=== PATIENT | male | born 1960 | race Two or more races ===

== ENCOUNTER 2018-08-24 14:15 | Inpatient (IN) | payer SELFPAY ==
[~2018-08-24] VITALS: Ht 165.1 cm; Wt 136.1 kg
[~2018-08-24 14:15] MED LIST: AMLO10TA6 PO; METO100T7 PO
[2018-08-24] MEDS ORDERED: MORPHINE SULFATE 2 MG/ML VIAL. IV ONE (14:45)
[2018-08-24] MEDS: NITROGLYCERIN SUBLINGUAL 0.4 MG BOTTLE OF 25. SL PRN ×3 (14:55→15:10)
[2018-08-24 14:57] LABS: BASO # 0.1 x10^3/uL (0.0-0.2); BASO % 1 % (0-3); EOS # 0.1 x10^3/uL (0.0-0.7); EOS % 1 % (0-3); HEMATOCRIT 37.1 % (39.0-53.0); HEMOGLOBIN 12.9 g/dL (13.0-17.5); LYMPH # 1.3 x10^3/uL (1.0-4.8); LYMPH % 19 % (24-48); MEAN CORPUSCULAR HEMOGLOBIN 32 pg (25-35); MEAN CORPUSCULAR HGB CONC 35 g/dL (31-37); MEAN CORPUSCULAR VOLUME 91 fL (79-100); MONO # 0.5 x10^3/uL (0.0-1.1); MONO % 7 % (0-9); NEUT # 4.6 x10^3uL (1.8-7.7); NEUT % 71 % (31-73); PLATELET COUNT 89 x10^3/uL (140-400); RED BLOOD COUNT 4.09 x10^6/uL (4.30-5.70); RED CELL DISTRIBUTION WIDTH 14.4 % (11.5-14.5); WHITE BLOOD COUNT 6.5 x10^3/uL (4.0-11.0)
[2018-08-24 15:04] LABS: PROTHROMBIN TIME PATIENT 17.5 SEC (11.7-14.0)
[2018-08-24 15:07] LABS: CALCIUM 8.6 mg/dL (8.5-10.1); CREATININE 0.9 mg/dL (0.7-1.3); D-DIMER 1.77 ug/mlFEU (0.00-0.50); GFR 86.7; POTASSIUM 3.4 mmol/L (3.5-5.1)
[2018-08-24 15:13] LABS: ALBUMIN 3.4 g/dL (3.4-5.0); ALBUMIN/GLOBULIN RATIO 0.6 (1.0-1.7); MAGNESIUM 1.4 mg/dL (1.8-2.4); TOTAL BILIRUBIN 2.2 mg/dL (0.2-1.0); TOTAL PROTEIN 8.8 g/dL (6.4-8.2)
--- NOTE | 2018-08-24 15:18 | PHYS DOC ---
Past Medical History Past Medical History: Hypertension Past Surgical History: No Surgical History Alcohol Use: None Drug Use: None Adult General Chief Complaint Chief Complaint: CHEST PAIN HPI HPI Patient is a 57 year old male with history of hypertension who presents today complaining of 8 out of 10 stabbing substernal chest pain radiating to his back that has been going on since yesterday. Patient states the pain is worse when he is ambulating. Patient states he has taken aspirin for this pain with no relief. Patient states he had similar pain last year and was evaluated, he states he was requested to see a tennis professional, he states his pain went away and never followed up with her tennis professional. Review of Systems Review of Systems Constitutional: Denies fever or chills [] Eyes: Denies change in visual acuity, redness, or eye pain [] HENT: Denies nasal congestion or sore throat [] Respiratory: Denies cough or shortness of breath [] Cardiovascular: Reports chest pain GI: Denies abdominal pain, nausea, vomiting, bloody stools or diarrhea [] : Denies dysuria or hematuria [] Musculoskeletal: Denies back pain or joint pain [] Integument: Denies rash or skin lesions [] Neurologic: Denies headache, focal weakness or sensory changes [] All other systems were reviewed and found to be within normal limits, except as documented in this note. Current Medications Current Medications Current Medications Medications (Trade) Dose Ordered Sig/Zane Start Time Stop Time Status Last Admin Dose Admin Info (CONTRAST GIVEN -- Rx MONITORING) 1 each PRN DAILY PRN 08/24/18 15:45 08/26/18 15:44 Iohexol (Omnipaque 300 Mg/ml) 90 ml 1X ONCE 08/24/18 15:30 08/24/18 15:33 DC 08/24/18 15:30 100 ML Magnesium Sulfate 50 ml @ 25 mls/hr 1X ONCE 08/24/18 16:15 08/24/18 18:14 08/24/18 16:40 25 MLS/HR Morphine Sulfate (Morphine Sulfate) 2 mg 1X ONCE 08/24/18 14:45 08/24/18 14:46 DC 08/24/18 14:55 2 MG Nitroglycerin (Nitrostat) 0.4 mg PRN Q5MIN PRN 08/24/18 14:45 08/25/18 14:44 08/24/18 15:10 0.4 MG Potassium Chloride (Klor-Con) 20 meq 1X ONCE 08/24/18 16:15 08/24/18 16:16 DC 08/24/18 16:39 20 MEQ Allergies Allergies Allergies Coded Allergies Type Severity Reaction Last Updated Verified No Known Drug Allergies 08/28/17 No Physical Exam Physical Exam Constitutional: Obese patient, no acute distress, non-toxic appearance. [] HENT: Normocephalic, atraumatic, bilateral external ears normal, oropharynx moist, no oral exudates, nose normal. [] Eyes: PERRLA, EOMI, conjunctiva normal, no discharge. [] Neck: Normal range of motion, no tenderness, supple, no stridor. [] Cardiovascular:Heart rate regular rhythm, no murmur [] Lungs & Thorax: Bilateral breath sounds clear to auscultation [] Abdomen: Bowel sounds normal, soft, no tenderness, no masses, no pulsatile masses. [] Skin: Warm, dry, no erythema, no rash. [] Back: No tenderness, no CVA tenderness. [] Extremities: No tenderness, no cyanosis, no clubbing, ROM intact, no edema. [] Neurologic: Alert and oriented X 3, normal motor function, normal sensory function, no focal deficits noted. [] Psychologic: Affect normal, judgement normal, mood normal. [] Current Patient Data Vital Signs Vital Signs Date Time Temp Pulse Resp B/P (MAP) Pulse Ox O2 Delivery O2 Flow Rate FiO2 08/24/18 16:43 98 18 140/76 (97) 96 Room Air 08/24/18 14:44 98.2 98.2 Lab Values Laboratory Tests Test 08/24/18 14:30 White Blood Count 6.5 x10^3/uL (4.0-11.0) Red Blood Count 4.09 x10^6/uL (4.30-5.70) L Hemoglobin 12.9 g/dL (13.0-17.5) L Hematocrit 37.1 % (39.0-53.0) L Mean Corpuscular Volume 91 fL (79-100) Mean Corpuscular Hemoglobin 32 pg (25-35) Mean Corpuscular Hemoglobin Concent 35 g/dL (31-37) Red Cell Distribution Width 14.4 % (11.5-14.5) Platelet Count 89 x10^3/uL (140-400) L Neutrophils (%) (Auto) 71 % (31-73) Lymphocytes (%) (Auto) 19 % (24-48) L Monocytes (%) (Auto) 7 % (0-9) Eosinophils (%) (Auto) 1 % (0-3) Basophils (%) (Auto) 1 % (0-3) Neutrophils # (Auto) 4.6 x10^3uL (1.8-7.7) Lymphocytes # (Auto) 1.3 x10^3/uL (1.0-4.8) Monocytes # (Auto) 0.5 x10^3/uL (0.0-1.1) Eosinophils # (Auto) 0.1 x10^3/uL (0.0-0.7) Basophils # (Auto) 0.1 x10^3/uL (0.0-0.2) Platelet Estimate Decreased (ADEQUATE) Prothrombin Time 17.5 SEC (11.7-14.0) H Prothrombin Time INR 1.5 (0.8-1.1) H D-Dimer (Arcelia) 1.77 ug/mlFEU (0.00-0.50) H Sodium Level 138 mmol/L (136-145) Potassium Level 3.4 mmol/L (3.5-5.1) L Chloride Level 99 mmol/L (98-107) Carbon Dioxide Level 23 mmol/L (21-32) Anion Gap 16 (6-14) H Blood Urea Nitrogen 9 mg/dL (8-26) Creatinine 0.9 mg/dL (0.7-1.3) Estimated GFR (Cockcroft-Gault) 86.7 BUN/Creatinine Ratio 10 (6-20) Glucose Level 83 mg/dL (70-99) Calcium Level 8.6 mg/dL (8.5-10.1) Magnesium Level 1.4 mg/dL (1.8-2.4) L Total Bilirubin 2.2 mg/dL (0.2-1.0) H Aspartate Amino Transferase (AST) 165 U/L (15-37) H Alanine Aminotransferase (ALT) 86 U/L (16-63) H Alkaline Phosphatase 139 U/L (46-116) H Troponin I Quantitative 0.018 ng/mL (0.000-0.055) US-Igc-I-Type Natriuretic Peptide 32 pg/mL (0-124) Total Protein 8.8 g/dL (6.4-8.2) H Albumin 3.4 g/dL (3.4-5.0) Albumin/Globulin Ratio 0.6 (1.0-1.7) L Triglycerides Level 126 mg/dL (0-150) Cholesterol Level 181 mg/dL (0-200) LDL Cholesterol, Calculated 88 mg/dL (0-100) VLDL Cholesterol, Calculated 25 mg/dL (0-40) Non-HDL Cholesterol Calculated 113 mg/dL (0-129) HDL Cholesterol 68 mg/dL (40-60) H Cholesterol/HDL Ratio 2.7 Lipase 274 U/L (73-393) Thyroid Stimulating Hormone (TSH) 1.421 uIU/mL (0.358-3.74) Ethyl Alcohol Level < 10 mg/dL (0-10) Laboratory Tests 08/24/18 14:30 Laboratory Tests 08/24/18 14:30 EKG EKG 14:[address] Haddad sinus tachycardia with non specific ST changes.[] Radiology/Procedures Radiology/Procedures []PROCEDURE: CT ANGIO CHEST ABD PELVIS PQRS Compliance statement: One or more of the following individualized dose reduction techniques were utilized for this examination: 1. Automated exposure control. 2. Adjustment of the mA and/or kV according to patient size. 3. Use of iterative reconstruction technique. Indication:Left-sided chest pain, nausea. Evaluate for PE versus aortic dissection. TECHNIQUE: CT angiogram of the chest, abdomen and pelvis without and with IV contrast with multiplanar MIP reformats. 3-D volume rendered postprocessing was performed. COMPARISON: None FINDINGS: Suboptimal PE study due to contrast bolus timing and motion artifact. No central or proximal segmental filling defects. Evaluation of distal segmental and subsegmental pulmonary arteries is limited. Suboptimal angiography study for evaluation of aortic dissection. No aortic aneurysm seen. No apparent dissection flap seen. Heart is normal in size. No pericardial or pleural effusion. No enlarged axillary, mediastinal or hilar adenopathy. Central airways are patent. Lungs are clear of focal consolidation or interstitial abnormalities. Evaluation of bilateral lower lobes is limited due to motion artifact. Diffuse hepatic steatosis. Gallstones noted. No pericholecystic fluid. Spleen is mildly enlarged measuring 14.5 cm without focal lesion Pancreas within normal limits without peripancreatic inflammatory changes or focal pancreatic lesion. Adrenal glands show no focal mass. Recanalization of paraumbilical vein is seen. Partially exophytic 1.7 cm low attenuating lesion is seen in the upper pole of the right kidney demonstrating Hounsfield units compatible with simple cyst. Simple cyst is seen in the left kidney measuring 4.0 x 3.6 cm. No nephrolithiasis or hydronephrosis. No enlarged retroperitoneal adenopathy. Mildly enlarged 1.8 x 1.1 cm right external iliac chain lymph node is seen. Mildly enlarged 1.7 x 0.8 cm left external iliac chain lymph node is seen. Small fat-containing bilateral inguinal hernia. No free pelvic fluid or ascites. The celiac axis, splenic artery, common hepatic artery, left gastric artery, SMA, YAJAIRA, bilateral renal arteries, bilateral common iliac arteries, bilateral external/internal iliac arteries, bilateral common femoral arteries are patent without evidence of atherosclerotic disease or aneurysm. No bowel obstruction. Normal appendix. Shotty craig hepatis lymph nodes are seen most likely reactive. Urinary bladder is within normal limits. The prostate and seminal vesicles show no large mass. No suspicious bony lesion. IMPRESSION: 1. Suboptimal PE study due to contrast bolus timing and breathing motion artifact. No central or proximal segmental PE. Evaluation of distal segmental and subsegmental pulmonary arteries is limited. No imaging evidence of pulmonary infarct or pneumonia. Further evaluation with nuclear medicine VQ scan may be of additional benefit. 2. Suboptimal aortic angiographic study. However no aortic aneurysm or apparent dissection flap seen. The major abdominal aortic branches are patent. 3. Hepatic steatosis. 4. Mild splenomegaly with evidence of pulmonary artery hypertension. 5. Mildly enlarged bilateral external iliac chain lymph nodes, nonspecific most likely reactive. 6. Cholelithiasis without imaging evidence of acute cholecystitis. Electronically signed by: Cam Crisostomo DO (08/24/2018 4:37 PM) [facility] DICTATED and SIGNED BY: CAM CRISOSTOMO DO DATE: 08/24/18 162 PROCEDURE: ABDOMEN LTD Right upper quadrant abdominal ultrasound, 08/24/2018: HISTORY: Elevated bilirubin, right upper quadrant pain The gallbladder is within normal limits in size. There are multiple foci of increased activity echogenicity in the dependent aspect of the gallbladder compatible with calculi. The gallbladder wall are not thickened. The common hepatic duct is not visualized. The pancreas and central retroperitoneum were obscured by overlying bowel. The liver was not well delineated due to the patient's body habitus. No right renal abnormality is detected. IMPRESSION: Limited exam demonstrating cholelithiasis. Electronically signed by: Chin Benitez MD (08/24/2018 4:42 PM) [facility] DICTATED and SIGNED BY: CHIN BENITEZ MD DATE: 08/24/18 3720 Course & Med Decision Making Course & Med Decision Making Pertinent Labs and Imaging studies reviewed. (See chart for details) This is a 57-year-old male patient presenting to the ED today complaining of chest pain since yesterday. Spoke with Malena PROFESSOR OF ENVIRONMENTAL SCIENCE for cardiology who will follow-up with the patient. 16:[address] PROFESSOR OF ENVIRONMENTAL SCIENCE for Cardiology in the Ed seeing patient. States patient has hx of alcoholism and Meth use. He last drank yesterday and that's when his symptoms began by information he gave Lane CBC with hemoglobin of 12.9 and hematocrit 37.2, patient denies any rectal bleeding, troponin is normal, magnesium 1.4, patient was given IV magnesium in the ED. Bilirubin 2.2 AST 105 ALT 86 ALT 139, limited abdominal ultrasound was done which was noted for cholelithiasis. Chest x-ray interpreted by radiologist as negative for any acute findings, d- dimer was 1.77, CTA chest abdomen was done which did not identify any PE or dissection though radiologist mentions this was a suboptimal diagnosis due to the time contrast was injected. Patient's pain is currently well controlled. He was given morphine and nitroglycerin in the ED. He already had an aspirin. Consulted with Dr. Velazquez who accepted patient for admission. Dragon Disclaimer Dragon Disclaimer This electronic medical record was generated, in whole or in part, using a voice recognition dictation system. Departure Departure Impression: Primary Impression: Chest pain Additional Impressions: Cholelithiases Transaminitis Disposition: ADMITTED INPATIENT Condition: STABLE Referrals: UNKNOWN PCP NAME (PCP) Problem Qualifiers Primary Impression: Chest pain Chest pain type: unspecified Qualified Codes: R07.9 - Chest pain, unspecified Additional Impressions: Cholelithiases Cholelithiasis location: gallbladder Cholecystitis presence: without cholecystitis Biliary obstruction: without biliary obstruction Qualified Codes: K80.20 - Calculus of gallbladder without cholecystitis without obstruction TARA PRICE BANANA GRADER Aug 24, 2018 15:17
[2018-08-24 15:20] LABS: PLT ESTIMATE DECREASED (ADEQUATE)
--- NOTE | 2018-08-24 15:22 | RAD ---
PORTABLE CHEST 1V Clinical indications: CHEST PAIN COMPARISON: None available. Findings: There is mild elevation of the right hemidiaphragm. This could be due to focal eventration. No acute lung infiltrate or pleural effusion or pulmonary edema or lung mass or pneumothorax is seen. The heart size, pulmonary vasculature, mediastinum and both vesta are unremarkable. Impression: No acute radiographic abnormality is seen. Electronically signed by: Cy Liriano MD (08/24/2018 3:19 PM) [place] [id number]
[2018-08-24] MEDS ORDERED: IOHEXOL 300 MG/ML 100ML VIAL. IV ONE (15:30)
--- NOTE | 2018-08-24 15:42 | EKG ---
[facility] [address] [place] [address] Test Date: 2018-08-24 Test Time: 14:27:06 Pat Name: JOHN JONESSOLE Department: Room: Gender: M Mountain Guide: : 1960 Requested By: TARA PRICE Order Number: [id number] Reading MD: Measurements Intervals [place] Rate: 108 P: 8 DC: 150 QRS: 61 QRSD: 100 T: 57 QT: 372 QTc: 502 Interpretive Statements SINUS TACHYCARDIA OTHERWISE NORMAL ECG No previous ECG available for comparison
[2018-08-24] MEDS ORDERED: CONTRAST GIVEN. MC PRN (15:45)
--- NOTE | 2018-08-24 16:04 | PDOC2 ---
JOSE PADILLA VP INFORMATICS 08/24/18 1604: CARDIAC CONSULT DATE OF CONSULT Date of Consult DATE: 08/24/18 TIME: 15:55 REASON FOR CONSULT Reason for Consult: Chest pain REFERRING PHYSICIAN Referring Physician: María SOURCE Source: Chart review, Patient HISTORY OF PRESENT ILLNESS HISTORY OF PRESENT ILLNESS This is a pleasant 57 yo male admitted for complains of chest pain. He was a heavy alcoholic from last year and quit and started drinking again on for a alliance party and quit and yesterday drank 1 bottle of tequila during a alliance party. His lower sternal chest pressure which radiated directly to his immediate back and lower back after drinking the ETOH yesterday, This got a little better and finally today this recurred again and also could not take deep breath due to the pain and also having palpable epigastric and RUQ pain. Positive for nausea but no diarrhea. The last time he ate food was yesterday. No palpitations nor significant diaphoresis. He did fall because he was drank back in [employer]. No prior CAD or VTE. He takes metoprolol 100 mg bid, lisinopril 20 mg/HCTZ 12.5 and amlodipine 10 mg daily. He took some ASA during his chest pain today and the pain lasted about 30 minutes. Denies any HARMON. PAST MEDICAL HISTORY Cardiovascular: HTN Pulmonary: No pertinent hx CENTRAL NERVOUS SYSTEM: Other (No pertientn history) GI: Hemorrhoids Heme/Onc: No pertinent hx Hepatobiliary: No pertinent hx Psych: Other (past heavy alcoholism) Musculoskeletal: Osteoarthritis Rheumatologic: No pertinent hx Infectious disease: No pertinent hx ENT: No pertinent hx Renal/: No pertinent hx Endocrine: No pertinent hx Dermatology: No pertinent hx PAST SURGICAL HISTORY Past Surgical History: No pertinent history FAMILY HISTORY Family History noncontributory to CV SOCIAL HISTORY Smoke: No ALCOHOL: heavy Drugs: None, Crystal meth (2017 last use) Lives: with Family CURRENT MEDICATIONS CURRENT MEDICATIONS Current Medications Medications (Trade) Dose Ordered Sig/Zane Route PRN Reason Start Time Stop Time Status Last Admin Dose Admin Nitroglycerin (Nitrostat) 0.4 mg PRN Q5MIN PRN SL CP RATING > 1/10 08/24/18 14:45 08/25/18 14:44 08/24/18 15:10 Morphine Sulfate (Morphine Sulfate) 2 mg 1X ONCE IV 08/24/18 14:45 08/24/18 14:46 DC 08/24/18 14:55 ALLERGIES ALLERGIES: Coded Allergies: No Known Drug Allergies (Unverified , 08/28/17) ROS Review of System 14 point ROS evaluated with pertinent positives noted per HPI PHYSICAL EXAM General: Alert, Oriented X3, Cooperative, No acute distress HEENT: Atraumatic, Mucous membr. moist/pink Lungs: Clear to auscultation, Normal air movement Heart: Regular rate (SR/ST), Normal S1, Normal S2, Other (distnat heart sounds) Extremities: No cyanosis, Other (trace to 1+ bilateral LE pitting edema) Skin: No breakdown Neuro: Normal speech, Sensation intact Psych/Mental Status: Mental status NL, Mood NL MUSCULOSKELETAL: Osteoarthritic changes both hands VITALS VITALS Vital Signs Date Time Temp Pulse Resp B/P (MAP) Pulse Ox O2 Delivery O2 Flow Rate FiO2 08/24/18 15:10 104 111/56 08/24/18 14:55 20 98 08/24/18 14:44 98.2 Room Air 98.2 LABS Lab: Laboratory Tests Test 08/24/18 14:30 White Blood Count 6.5 x10^3/uL (4.0-11.0) Red Blood Count 4.09 x10^6/uL (4.30-5.70) Hemoglobin 12.9 g/dL (13.0-17.5) Hematocrit 37.1 % (39.0-53.0) Mean Corpuscular Volume 91 fL (79-100) Mean Corpuscular Hemoglobin 32 pg (25-35) Mean Corpuscular Hemoglobin Concent 35 g/dL (31-37) Red Cell Distribution Width 14.4 % (11.5-14.5) Platelet Count 89 x10^3/uL (140-400) Neutrophils (%) (Auto) 71 % (31-73) Lymphocytes (%) (Auto) 19 % (24-48) Monocytes (%) (Auto) 7 % (0-9) Eosinophils (%) (Auto) 1 % (0-3) Basophils (%) (Auto) 1 % (0-3) Neutrophils # (Auto) 4.6 x10^3uL (1.8-7.7) Lymphocytes # (Auto) 1.3 x10^3/uL (1.0-4.8) Monocytes # (Auto) 0.5 x10^3/uL (0.0-1.1) Eosinophils # (Auto) 0.1 x10^3/uL (0.0-0.7) Basophils # (Auto) 0.1 x10^3/uL (0.0-0.2) Platelet Estimate Decreased (ADEQUATE) Prothrombin Time 17.5 SEC (11.7-14.0) Prothromb Time International Ratio 1.5 (0.8-1.1) D-Dimer (Arcelia) 1.77 ug/mlFEU (0.00-0.50) Sodium Level 138 mmol/L (136-145) Potassium Level 3.4 mmol/L (3.5-5.1) Chloride Level 99 mmol/L (98-107) Carbon Dioxide Level 23 mmol/L (21-32) Anion Gap 16 (6-14) Blood Urea Nitrogen 9 mg/dL (8-26) Creatinine 0.9 mg/dL (0.7-1.3) Estimated GFR (Cockcroft-Gault) 86.7 BUN/Creatinine Ratio 10 (6-20) Glucose Level 83 mg/dL (70-99) Calcium Level 8.6 mg/dL (8.5-10.1) Magnesium Level 1.4 mg/dL (1.8-2.4) Total Bilirubin 2.2 mg/dL (0.2-1.0) Aspartate Amino Transf (AST/SGOT) 165 U/L (15-37) Alanine Aminotransferase (ALT/SGPT) 86 U/L (16-63) Alkaline Phosphatase 139 U/L (46-116) Troponin I Quantitative 0.018 ng/mL (0.000-0.055) GD-Bxb-Z-Type Natriuretic Peptide 32 pg/mL (0-124) Total Protein 8.8 g/dL (6.4-8.2) Albumin 3.4 g/dL (3.4-5.0) Albumin/Globulin Ratio 0.6 (1.0-1.7) Lipase 274 U/L (73-393) Thyroid Stimulating Hormone (TSH) 1.421 uIU/mL (0.358-3.74) ASSESSMENT/PLAN ASSESSMENT/PLAN 1. Chest pain: mixed features. Suspect GI/GB. Possible cholelithiasis/ esophagitis 2. Elevated DDIMER: CTA chest/abd/pelvis pending 3. Binge alcoholism with hx of heavy alcoholism: relapse 1 bottle of tequila yesterday 4. Hypomagnesemia/hypokalemia 5. Coagulopathy with telangiectasia: INR 1,5. likely ETOH related. per PCP 6. Morbid obesity Recommendations 1. TTE. trend troponin. Await CT results. UDS 2. Resume home BP regimen once in EMR. 3. ETOH withdrawal protocol per PCP. Discussed avoidance of binging. 4. Replace K and Mg. WON ROGERS MD 08/25/18 1139: CARDIAC CONSULT ASSESSMENT/PLAN ASSESSMENT/PLAN Patient seen and examined 08/24/18 (late entry). Agree with NAVAL ENGINEER's assessment and plan. Chest pain with atypical features and most probably GI etiology. Myocardial infarction been ruled out. Check 2-D echo to assess LV function and rule out wall motion abnormalities Monitor for alcohol withdrawal Agree with replacing potassium and magnesium levels Thank you for your consultation JOSE PADILLA APRN Aug 24, 2018 16:04 WON ROGERS MD Aug 25, 2018 11:39
[2018-08-24] MEDS ORDERED: MAGNESIUM SULFATE 2GM 50 ML IV ONE (16:15)
[2018-08-24] MEDS ORDERED: POTASSIUM CHLORIDE 20 MEQ TABLET.ER. PO ONE (16:15)
--- NOTE | 2018-08-24 16:41 | RAD ---
PQRS Compliance statement: One or more of the following individualized dose reduction techniques were utilized for this examination: 1. Automated exposure control. 2. Adjustment of the mA and/or kV according to patient size. 3. Use of iterative reconstruction technique. Indication:Left-sided chest pain, nausea. Evaluate for PE versus aortic dissection. TECHNIQUE: CT angiogram of the chest, abdomen and pelvis without and with IV contrast with multiplanar MIP reformats. 3-D volume rendered postprocessing was performed. COMPARISON: None FINDINGS: Suboptimal PE study due to contrast bolus timing and motion artifact. No central or proximal segmental filling defects. Evaluation of distal segmental and subsegmental pulmonary arteries is limited. Suboptimal angiography study for evaluation of aortic dissection. No aortic aneurysm seen. No apparent dissection flap seen. Heart is normal in size. No pericardial or pleural effusion. No enlarged axillary, mediastinal or hilar adenopathy. Central airways are patent. Lungs are clear of focal consolidation or interstitial abnormalities. Evaluation of bilateral lower lobes is limited due to motion artifact. Diffuse hepatic steatosis. Gallstones noted. No pericholecystic fluid. Spleen is mildly enlarged measuring 14.5 cm without focal lesion Pancreas within normal limits without peripancreatic inflammatory changes or focal pancreatic lesion. Adrenal glands show no focal mass. Recanalization of paraumbilical vein is seen. Partially exophytic 1.7 cm low attenuating lesion is seen in the upper pole of the right kidney demonstrating Hounsfield units compatible with simple cyst. Simple cyst is seen in the left kidney measuring 4.0 x 3.6 cm. No nephrolithiasis or hydronephrosis. No enlarged retroperitoneal adenopathy. Mildly enlarged 1.8 x 1.1 cm right external iliac chain lymph node is seen. Mildly enlarged 1.7 x 0.8 cm left external iliac chain lymph node is seen. Small fat-containing bilateral inguinal hernia. No free pelvic fluid or ascites. The celiac axis, splenic artery, common hepatic artery, left gastric artery, SMA, YAJAIRA, bilateral renal arteries, bilateral common iliac arteries, bilateral external/internal iliac arteries, bilateral common femoral arteries are patent without evidence of atherosclerotic disease or aneurysm. No bowel obstruction. Normal appendix. Shotty craig hepatis lymph nodes are seen most likely reactive. Urinary bladder is within normal limits. The prostate and seminal vesicles show no large mass. No suspicious bony lesion. IMPRESSION: 1. Suboptimal PE study due to contrast bolus timing and breathing motion artifact. No central or proximal segmental PE. Evaluation of distal segmental and subsegmental pulmonary arteries is limited. No imaging evidence of pulmonary infarct or pneumonia. Further evaluation with nuclear medicine VQ scan may be of additional benefit. 2. Suboptimal aortic angiographic study. However no aortic aneurysm or apparent dissection flap seen. The major abdominal aortic branches are patent. 3. Hepatic steatosis. 4. Mild splenomegaly with evidence of pulmonary artery hypertension. 5. Mildly enlarged bilateral external iliac chain lymph nodes, nonspecific most likely reactive. 6. Cholelithiasis without imaging evidence of acute cholecystitis. Electronically signed by: Cam Crisostomo DO (08/24/2018 4:37 PM) [facility]
--- NOTE | 2018-08-24 16:46 | RAD ---
Right upper quadrant abdominal ultrasound, 08/24/2018: HISTORY: Elevated bilirubin, right upper quadrant pain The gallbladder is within normal limits in size. There are multiple foci of increased activity echogenicity in the dependent aspect of the gallbladder compatible with calculi. The gallbladder wall are not thickened. The common hepatic duct is not visualized. The pancreas and central retroperitoneum were obscured by overlying bowel. The liver was not well delineated due to the patient's body habitus. No right renal abnormality is detected. IMPRESSION: Limited exam demonstrating cholelithiasis. Electronically signed by: Chin Benitez MD (08/24/2018 4:42 PM) [facility]
[2018-08-24 17:07] LABS: CHOLESTEROL/HDL RATIO 2.7
--- NOTE | 2018-08-24 17:48 | EKG ---
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
--- NOTE | 2018-08-24 18:02 | HP ---
ADMIT DATE: 08/24/2018 CHIEF COMPLAINT: Chest pain. HISTORY OF PRESENT ILLNESS: The patient is a pleasant 57-year-old male who presents with chest pain rated 7/10, worse with moving, better with sitting still, describes it as agonizing and pressure like. He took a nitro, it helped. I discussed the case with ER physician. We are going to admit the patient and consult Cardiology. PAST MEDICAL HISTORY: Osteoarthritis and alcohol issues. ALLERGIES: None. FAMILY HISTORY: Alcohol issues. SOCIAL HISTORY: He drinks heavily tequila. Does not smoke or take drugs. MEDICATIONS: Reviewed, please refer to the MRAD. REVIEW OF SYSTEMS: GENERAL: No history of weight change, weakness or fevers. SKIN: No bruising, hair changes or rashes. EYES: No blurred, double or loss of vision. NOSE AND THROAT: No history of nosebleeds, hoarseness or sore throat. HEART: He complains of chest pain. LUNGS: Denies cough, hemoptysis, wheezing or shortness of breath. GASTROINTESTINAL: Denies changes in appetite, nausea, vomiting, diarrhea or constipation. GENITOURINARY: No history of frequency, urgency, hesitancy or nocturia. NEUROLOGIC: Denies history of numbness, tingling, tremor or weakness. PSYCHIATRIC: No history of panic, anxiety or depression. ENDOCRINE: No history of heat or cold intolerance, polyuria or polydipsia. EXTREMITIES: Denies muscle weakness, joint pain, pain on walking or stiffness. PHYSICAL EXAMINATION: VITAL SIGNS: Temperature afebrile, pulse 98, respirations 18. GENERAL: He is alert, cooperative, complaining of chest pain. HEART: Normal S1, S2. LUNGS: Clear to auscultation. ABDOMEN: Soft, obese. EXTREMITIES: 1+ edema. SKIN: No rashes. ENDOCRINE: No thyromegaly. LYMPHATICS: No cervical nodes. HEMATOPOIETIC: No bruising. PSYCHIATRIC: He is depressed. NEUROLOGICAL: He is moving all extremities. GENITOURINARY: Normal. LABORATORY DATA: Hemoglobin is 12.9. Troponin 0.018. ASSESSMENT AND PLAN: Chest pain, rule out coronary artery disease. The patient has been admitted. We will check serial enzymes, serial EKGs. Consult Cardiology, cardiac monitoring. Daily aspirin, p.r.n. nitro. ELMERL Ole SYED DO DR: Jeff JOB#: [id number] / [id number]
[2018-08-24] MEDS ORDERED: LISI1TAB5 PO (20:11)
[2018-08-24 21:56] LABS: BILIRUBIN,URINE SMALL (NEG); CLARITY,URINE CLEAR; NITRITE,URINE NEGATIVE (NEG); PH,URINE 6.5; PROTEIN,URINE 30 mg/dL (NEG-TRACE)
[2018-08-24 22:01] LABS: COLOR,URINE DK YELLOW
[2018-08-24 22:02] LABS: BARBITURATES NEG (NEG); BENZODIAZEPINES NEG (NEG); CANNABINOIDS NEG (NEG); COCAINE NEG (NEG); METHADONE NEG (NEG); OPIATES POS (NEG); PHENCYCLIDINE NEG (NEG)
[2018-08-24 22:06] LABS: AMPHETAMINE/METHAMPHETAMINE NEG (NEG); BACTERIA,URINE 0 /HPF (0-FEW); RBC,URINE OCC /HPF (0-2); SQUAMOUS EPITHELIAL CELL,UR FEW /LPF; WBC,URINE 0 /HPF (0-4)
[2018-08-24 23:35] VITALS: BP 152/72
[2018-08-25 03:45] VITALS: BP 157/84
[2018-08-25 07:00] VITALS: BP 170/83
[2018-08-25 08:00] LABS: CALCIUM 8.4 mg/dL (8.5-10.1); CREATININE 0.7 mg/dL (0.7-1.3); GFR 115.8; MAGNESIUM 1.9 mg/dL (1.8-2.4); POTASSIUM 3.3 mmol/L (3.5-5.1)
[2018-08-25] MEDS ORDERED: POTASSIUM CHLORIDE 20 MEQ TABLET.ER. PO ONE (08:45)
[2018-08-25] MEDS ORDERED: hydroCHLOROthiazide 12.5 MG CAPSULE PO SCH (09:00)
[2018-08-25] MEDS: amLODIPine BESYLATE 10 MG TABLET PO SCH (10:04)
[2018-08-25] MEDS: LISINOPRIL 20 MG TABLET PO SCH (10:04)
[2018-08-25] MEDS: METOPROLOL TART IMMED RELEASE 50 MG TABLET. PO SCH ×2 (10:05→20:45)
--- NOTE | 2018-08-25 10:43 | CARD ---
MR#: [id number] Date of Study: 08/25/2018 Ordering Physician: JOSE PADILLA, Referring Physician: ARCADIO SYED Tech: Katherine Conde RDCS APPROVED REPORT EXAM: Two-dimensional and M-mode echocardiogram with Doppler and color Doppler. Other Information Quality : Good INDICATION Chest Pain 2D DIMENSIONS Left Atrium(2D)3.8 (1.6-4.0cm)IVSd1.6 (0.7-1.1cm) Aortic Root(2D)2.9 (2.0-3.7cm)LVDd5.7 (3.9-5.9cm) LVOT Diameter2.0 (1.8-2.4cm)PWd1.2 (0.7-1.1cm) LVDs4.7 (2.5-4.0cm)FS (%) 30.0 % SV54.9 mlLVEF(%)60.0 (>50%) Aortic Valve AoV Peak Alex.290.7cm/sAoV VTI56.8cm AO Peak GR.33.8mmHgLVOT Peak Alex.185.0cm/s AO Mean GR.19mmHgAVA (VMAX)2.01cm2 LILA (VTI)2.10cm2 Mitral Valve MV E Opcwaahm331.4cm/sMV DECEL BWUC969gk MV A Cuxkswiq624.2cm/sE/A Ratio0.9 Tricuspid Valve TR P. Qxjnefit577wf/sRAP QXVZAKDH4rgAz TR Peak Gr.57yqUqTDPH26kxWz Pulmonary Vein S1 Hpzuwokz03.2cm/sD2 Kzakrzzi86.8cm/s LEFT VENTRICLE The left ventricle is normal size. There is mild to moderate concentric left ventricular hypertrophy. The left ventricular systolic function is normal. The Ejection Fraction is 60-65%. There is normal L V segmental wall motion. RIGHT VENTRICLE The right ventricle is normal size. The right ventricular systolic function is normal. ATRIA The left atrium size is normal. The right atrium size is normal. The interatrial septum is intact wit h no evidence for an atrial septal defect or patent foramen ovale as noted on 2-D or Doppler imaging. AORTIC VALVE The aortic valve is calcified but opens well. Doppler and Color Flow revealed no significant aortic r egurgitation. There is no significant aortic valvular stenosis. MITRAL VALVE The mitral valve is calcified but opens well. There is no evidence of mitral valve prolapse. There is no mitral valve stenosis. Doppler and Color-flow revealed trace mitral regurgitation. TRICUSPID VALVE The tricuspid valve is normal in structure and function. Doppler and Color Flow revealed trace tricus pid regurgitation. There is moderate pulmonary hypertension. The PA pressure was estimated at 48 mmHg . There is no tricuspid valve stenosis. PULMONIC VALVE The pulmonic valve is not well visualized. Doppler and Color Flow revealed no pulmonic valvular regur gitation. There is no pulmonic valvular stenosis. GREAT VESSELS The aortic root is normal in size. The ascending aorta is not well seen. The IVC was not visualized. PERICARDIAL EFFUSION There is no evidence of significant pericardial effusion. Critical Notification Critical Value: No <Conclusion> The left ventricular systolic function is normal. The Ejection Fraction is 60-65%. There is normal LV segmental wall motion. Trace mitral regurgitation. Trace tricuspid regurgitation. There is moderate pulmonary hypertension. The PA pressure was estimated at 48 mmHg. There is no evidence of significant pericardial effusion. Signed by : Robin Saldana, Electronically Approved : 08/25/2018 10:42:09
--- NOTE | 2018-08-25 10:55 | PDOC ---
CARDIO Progress Notes Date and Time Date of Service 08/25/2018 Time of Evaluation 1030 Subjective Subjective: No Chest Pain, No shortness of breath, No Palpitations Vitals Vitals Vital Signs Date Time Temp Pulse Resp B/P (MAP) Pulse Ox O2 Delivery O2 Flow Rate FiO2 08/25/18 10:05 91 170/83 08/25/18 07:00 98.5 20 97 Room Air 98.5 Weight Weight [ ] Input and Output Intake and Output Intake and Output 08/25/18 07:00 Intake Total 300 ml Output Total 150 ml Balance 150 ml Intake Oral 250 ml IV Total 50 ml Output Urine Total 150 ml # Voids 1 Laboratory Labs Laboratory Tests Test 08/24/18 14:30 08/24/18 21:45 08/25/18 07:15 White Blood Count 6.5 x10^3/uL (4.0-11.0) Red Blood Count 4.09 x10^6/uL (4.30-5.70) Hemoglobin 12.9 g/dL (13.0-17.5) Hematocrit 37.1 % (39.0-53.0) Mean Corpuscular Volume 91 fL (79-100) Mean Corpuscular Hemoglobin 32 pg (25-35) Mean Corpuscular Hemoglobin Concent 35 g/dL (31-37) Red Cell Distribution Width 14.4 % (11.5-14.5) Platelet Count 89 x10^3/uL (140-400) Neutrophils (%) (Auto) 71 % (31-73) Lymphocytes (%) (Auto) 19 % (24-48) Monocytes (%) (Auto) 7 % (0-9) Eosinophils (%) (Auto) 1 % (0-3) Basophils (%) (Auto) 1 % (0-3) Neutrophils # (Auto) 4.6 x10^3uL (1.8-7.7) Lymphocytes # (Auto) 1.3 x10^3/uL (1.0-4.8) Monocytes # (Auto) 0.5 x10^3/uL (0.0-1.1) Eosinophils # (Auto) 0.1 x10^3/uL (0.0-0.7) Basophils # (Auto) 0.1 x10^3/uL (0.0-0.2) Platelet Estimate Decreased (ADEQUATE) Prothrombin Time 17.5 SEC (11.7-14.0) Prothromb Time International Ratio 1.5 (0.8-1.1) D-Dimer (Arcelia) 1.77 ug/mlFEU (0.00-0.50) Sodium Level 138 mmol/L (136-145) 138 mmol/L (136-145) Potassium Level 3.4 mmol/L (3.5-5.1) 3.3 mmol/L (3.5-5.1) Chloride Level 99 mmol/L (98-107) 100 mmol/L (98-107) Carbon Dioxide Level 23 mmol/L (21-32) 26 mmol/L (21-32) Anion Gap 16 (6-14) 12 (6-14) Blood Urea Nitrogen 9 mg/dL (8-26) 10 mg/dL (8-26) Creatinine 0.9 mg/dL (0.7-1.3) 0.7 mg/dL (0.7-1.3) Estimated GFR (Cockcroft-Gault) 86.7 115.8 BUN/Creatinine Ratio 10 (6-20) Glucose Level 83 mg/dL (70-99) 87 mg/dL (70-99) Calcium Level 8.6 mg/dL (8.5-10.1) 8.4 mg/dL (8.5-10.1) Magnesium Level 1.4 mg/dL (1.8-2.4) 1.9 mg/dL (1.8-2.4) Total Bilirubin 2.2 mg/dL (0.2-1.0) Aspartate Amino Transf (AST/SGOT) 165 U/L (15-37) Alanine Aminotransferase (ALT/SGPT) 86 U/L (16-63) Alkaline Phosphatase 139 U/L (46-116) Troponin I Quantitative 0.018 ng/mL (0.000-0.055) 0.034 ng/mL (0.000-0.055) TA-Ewo-R-Type Natriuretic Peptide 32 pg/mL (0-124) Total Protein 8.8 g/dL (6.4-8.2) Albumin 3.4 g/dL (3.4-5.0) Albumin/Globulin Ratio 0.6 (1.0-1.7) Triglycerides Level 126 mg/dL (0-150) Cholesterol Level 181 mg/dL (0-200) LDL Cholesterol, Calculated 88 mg/dL (0-100) VLDL Cholesterol, Calculated 25 mg/dL (0-40) Non-HDL Cholesterol Calculated 113 mg/dL (0-129) HDL Cholesterol 68 mg/dL (40-60) Cholesterol/HDL Ratio 2.7 Lipase 274 U/L (73-393) Thyroid Stimulating Hormone (TSH) 1.421 uIU/mL (0.358-3.74) Ethyl Alcohol Level < 10 mg/dL (0-10) Urine Collection Type Unknown Urine Color Dk yellow Urine Clarity Clear Urine pH 6.5 Urine Specific [place] >=1.030 Urine Protein 30 mg/dL (NEG-TRACE) Urine Glucose (UA) Negative mg/dL (NEG) Urine Ketones (Stick) >=80 mg/dL (NEG) Urine Blood Negative (NEG) Urine Nitrite Negative (NEG) Urine Bilirubin Small (NEG) Urine Urobilinogen Dipstick 2.0 mg/dL (0.2 mg/dL) Urine Leukocyte Esterase Negative (NEG) Urine RBC Occ /HPF (0-2) Urine WBC 0 /HPF (0-4) Urine Squamous Epithelial Cells Few /LPF Urine Bacteria 0 /HPF (0-FEW) Urine Opiates Screen Pos (NEG) Urine Methadone Screen Neg (NEG) Urine Barbiturates Neg (NEG) Urine Phencyclidine Screen Neg (NEG) Urine Amphetamine/Methamphetamine Neg (NEG) Urine Benzodiazepines Screen Neg (NEG) Urine Cocaine Screen Neg (NEG) Urine Cannabinoids Screen Neg (NEG) Urine Ethyl Alcohol Neg (NEG) Physical Exam HEENT: Neck Supple W Full Motion Chest: Symmetric LUNGS: Clear to Auscultation Heart: S1S2, RRR (Sr no exctopies) Abdomen: Soft N/T Extremities: No Calf Tenderness Neurology: alert, oriented, follow commands Assessment Assessment 1. Chest pain: Doubt ACS. Suspect GI/GB. Positive for cholelithiasis with possible esophagitis. EF and WM nml, negative for PE 2. Hepatic steatosis/mild splenomegaly/transaminitis: likely ETOH related. per PCP 3. Binge alcoholism with hx of heavy alcoholism: relapse 1 bottle of tequila yesterday 4. Hypomagnesemia/hypokalemia 5. Coagulopathy with telangiectasia: INR 1,5. likely ETOH related. per PCP 6. Morbid obesity 7. Diastolic CHF/pulmonary HTN 8. HTN: labile, has not received his meds Recommendations 1. Replace K. DC HCTZ and start on lasix. Resume home BP regimen. PPI 2. ETOH withdrawal protocol per PCP. Discussed avoidance of binging. 3. will need outpt DIGNA w/u 4. Wt loss regimen 5. encouraged outpt follow up. JOSE PADILLA APRN Aug 25, 2018 10:55
[2018-08-25 11:00] VITALS: BP 144/75
--- NOTE | 2018-08-25 11:19 | PDOC ---
PROGRESS NOTES Chief Complaint Chief Complaint Chest Pain History of Present Illness History of Present Illness Pt was seen and examined at bedside today, he is a friendly middle-aged man who enjoys his tequila. CT performed yesterday (08/24) showed cholelithiasis w/out evidence of cholecystitis, hepatic steatosis, and mild splenomegaly. Abdominal US confirmed he had cholelithiasis. His total bilirubin is 2.2 and trops were negative. Will consult GI regarding cholelithiasis. Cards is following. PT had no new complaints. Vitals Vitals Vital Signs Date Time Temp Pulse Resp B/P (MAP) Pulse Ox O2 Delivery O2 Flow Rate FiO2 08/25/18 10:05 91 170/83 08/25/18 07:00 98.5 20 97 Room Air 98.5 Physical Exam General: Alert, Oriented X3, Cooperative, No acute distress Heart: Regular rate (SR/ST), Normal S1, Normal S2, Other (distnat heart sounds) Lungs: Clear, Other (no crackles or wheezes) Abdomen: Normal bowel sounds, Other (TTP) Extremities: No cyanosis, Other (trace to 1+ bilateral LE pitting edema) Skin: No breakdown, No significant lesion Labs LABS Laboratory Tests Test 08/24/18 14:30 08/24/18 21:45 08/25/18 07:15 White Blood Count 6.5 x10^3/uL (4.0-11.0) Red Blood Count 4.09 x10^6/uL (4.30-5.70) Hemoglobin 12.9 g/dL (13.0-17.5) Hematocrit 37.1 % (39.0-53.0) Mean Corpuscular Volume 91 fL (79-100) Mean Corpuscular Hemoglobin 32 pg (25-35) Mean Corpuscular Hemoglobin Concent 35 g/dL (31-37) Red Cell Distribution Width 14.4 % (11.5-14.5) Platelet Count 89 x10^3/uL (140-400) Neutrophils (%) (Auto) 71 % (31-73) Lymphocytes (%) (Auto) 19 % (24-48) Monocytes (%) (Auto) 7 % (0-9) Eosinophils (%) (Auto) 1 % (0-3) Basophils (%) (Auto) 1 % (0-3) Neutrophils # (Auto) 4.6 x10^3uL (1.8-7.7) Lymphocytes # (Auto) 1.3 x10^3/uL (1.0-4.8) Monocytes # (Auto) 0.5 x10^3/uL (0.0-1.1) Eosinophils # (Auto) 0.1 x10^3/uL (0.0-0.7) Basophils # (Auto) 0.1 x10^3/uL (0.0-0.2) Platelet Estimate Decreased (ADEQUATE) Prothrombin Time 17.5 SEC (11.7-14.0) Prothromb Time International Ratio 1.5 (0.8-1.1) D-Dimer (Arcelia) 1.77 ug/mlFEU (0.00-0.50) Sodium Level 138 mmol/L (136-145) 138 mmol/L (136-145) Potassium Level 3.4 mmol/L (3.5-5.1) 3.3 mmol/L (3.5-5.1) Chloride Level 99 mmol/L (98-107) 100 mmol/L (98-107) Carbon Dioxide Level 23 mmol/L (21-32) 26 mmol/L (21-32) Anion Gap 16 (6-14) 12 (6-14) Blood Urea Nitrogen 9 mg/dL (8-26) 10 mg/dL (8-26) Creatinine 0.9 mg/dL (0.7-1.3) 0.7 mg/dL (0.7-1.3) Estimated GFR (Cockcroft-Gault) 86.7 115.8 BUN/Creatinine Ratio 10 (6-20) Glucose Level 83 mg/dL (70-99) 87 mg/dL (70-99) Calcium Level 8.6 mg/dL (8.5-10.1) 8.4 mg/dL (8.5-10.1) Magnesium Level 1.4 mg/dL (1.8-2.4) 1.9 mg/dL (1.8-2.4) Total Bilirubin 2.2 mg/dL (0.2-1.0) Aspartate Amino Transf (AST/SGOT) 165 U/L (15-37) Alanine Aminotransferase (ALT/SGPT) 86 U/L (16-63) Alkaline Phosphatase 139 U/L (46-116) Troponin I Quantitative 0.018 ng/mL (0.000-0.055) 0.034 ng/mL (0.000-0.055) FV-Mbd-X-Type Natriuretic Peptide 32 pg/mL (0-124) Total Protein 8.8 g/dL (6.4-8.2) Albumin 3.4 g/dL (3.4-5.0) Albumin/Globulin Ratio 0.6 (1.0-1.7) Triglycerides Level 126 mg/dL (0-150) Cholesterol Level 181 mg/dL (0-200) LDL Cholesterol, Calculated 88 mg/dL (0-100) VLDL Cholesterol, Calculated 25 mg/dL (0-40) Non-HDL Cholesterol Calculated 113 mg/dL (0-129) HDL Cholesterol 68 mg/dL (40-60) Cholesterol/HDL Ratio 2.7 Lipase 274 U/L (73-393) Thyroid Stimulating Hormone (TSH) 1.421 uIU/mL (0.358-3.74) Ethyl Alcohol Level < 10 mg/dL (0-10) Urine Collection Type Unknown Urine Color Dk yellow Urine Clarity Clear Urine pH 6.5 Urine Specific [place] >=1.030 Urine Protein 30 mg/dL (NEG-TRACE) Urine Glucose (UA) Negative mg/dL (NEG) Urine Ketones (Stick) >=80 mg/dL (NEG) Urine Blood Negative (NEG) Urine Nitrite Negative (NEG) Urine Bilirubin Small (NEG) Urine Urobilinogen Dipstick 2.0 mg/dL (0.2 mg/dL) Urine Leukocyte Esterase Negative (NEG) Urine RBC Occ /HPF (0-2) Urine WBC 0 /HPF (0-4) Urine Squamous Epithelial Cells Few /LPF Urine Bacteria 0 /HPF (0-FEW) Urine Opiates Screen Pos (NEG) Urine Methadone Screen Neg (NEG) Urine Barbiturates Neg (NEG) Urine Phencyclidine Screen Neg (NEG) Urine Amphetamine/Methamphetamine Neg (NEG) Urine Benzodiazepines Screen Neg (NEG) Urine Cocaine Screen Neg (NEG) Urine Cannabinoids Screen Neg (NEG) Urine Ethyl Alcohol Neg (NEG) Review of Systems Review of Systems CV: Yes chest pain, no palpitations GI: Yes abd pain, no diarrhea GENERAL: No unexpected wt loss, fever/chills Assessment and Plan Assessmemt and Plan ASSESSMENT: Chest Pain Transaminitis Cholelithiasis PLAN: Consult GI Transfer off Tele Await results from ECHO Home meds Consult PT/OT Recheck labs in AM Subspecialty input appreciated Comment Review of Relevant I have reviewed the following items dave (where applicable) has been applied. Labs Laboratory Tests Test 08/24/18 14:30 08/24/18 21:45 08/25/18 07:15 White Blood Count 6.5 x10^3/uL (4.0-11.0) Red Blood Count 4.09 x10^6/uL (4.30-5.70) Hemoglobin 12.9 g/dL (13.0-17.5) Hematocrit 37.1 % (39.0-53.0) Mean Corpuscular Volume 91 fL (79-100) Mean Corpuscular Hemoglobin 32 pg (25-35) Mean Corpuscular Hemoglobin Concent 35 g/dL (31-37) Red Cell Distribution Width 14.4 % (11.5-14.5) Platelet Count 89 x10^3/uL (140-400) Neutrophils (%) (Auto) 71 % (31-73) Lymphocytes (%) (Auto) 19 % (24-48) Monocytes (%) (Auto) 7 % (0-9) Eosinophils (%) (Auto) 1 % (0-3) Basophils (%) (Auto) 1 % (0-3) Neutrophils # (Auto) 4.6 x10^3uL (1.8-7.7) Lymphocytes # (Auto) 1.3 x10^3/uL (1.0-4.8) Monocytes # (Auto) 0.5 x10^3/uL (0.0-1.1) Eosinophils # (Auto) 0.1 x10^3/uL (0.0-0.7) Basophils # (Auto) 0.1 x10^3/uL (0.0-0.2) Platelet Estimate Decreased (ADEQUATE) Prothrombin Time 17.5 SEC (11.7-14.0) Prothromb Time International Ratio 1.5 (0.8-1.1) D-Dimer (Arcelia) 1.77 ug/mlFEU (0.00-0.50) Sodium Level 138 mmol/L (136-145) 138 mmol/L (136-145) Potassium Level 3.4 mmol/L (3.5-5.1) 3.3 mmol/L (3.5-5.1) Chloride Level 99 mmol/L (98-107) 100 mmol/L (98-107) Carbon Dioxide Level 23 mmol/L (21-32) 26 mmol/L (21-32) Anion Gap 16 (6-14) 12 (6-14) Blood Urea Nitrogen 9 mg/dL (8-26) 10 mg/dL (8-26) Creatinine 0.9 mg/dL (0.7-1.3) 0.7 mg/dL (0.7-1.3) Estimated GFR (Cockcroft-Gault) 86.7 115.8 BUN/Creatinine Ratio 10 (6-20) Glucose Level 83 mg/dL (70-99) 87 mg/dL (70-99) Calcium Level 8.6 mg/dL (8.5-10.1) 8.4 mg/dL (8.5-10.1) Magnesium Level 1.4 mg/dL (1.8-2.4) 1.9 mg/dL (1.8-2.4) Total Bilirubin 2.2 mg/dL (0.2-1.0) Aspartate Amino Transf (AST/SGOT) 165 U/L (15-37) Alanine Aminotransferase (ALT/SGPT) 86 U/L (16-63) Alkaline Phosphatase 139 U/L (46-116) Troponin I Quantitative 0.018 ng/mL (0.000-0.055) 0.034 ng/mL (0.000-0.055) MD-Fhc-E-Type Natriuretic Peptide 32 pg/mL (0-124) Total Protein 8.8 g/dL (6.4-8.2) Albumin 3.4 g/dL (3.4-5.0) Albumin/Globulin Ratio 0.6 (1.0-1.7) Triglycerides Level 126 mg/dL (0-150) Cholesterol Level 181 mg/dL (0-200) LDL Cholesterol, Calculated 88 mg/dL (0-100) VLDL Cholesterol, Calculated 25 mg/dL (0-40) Non-HDL Cholesterol Calculated 113 mg/dL (0-129) HDL Cholesterol 68 mg/dL (40-60) Cholesterol/HDL Ratio 2.7 Lipase 274 U/L (73-393) Thyroid Stimulating Hormone (TSH) 1.421 uIU/mL (0.358-3.74) Ethyl Alcohol Level < 10 mg/dL (0-10) Urine Collection Type Unknown Urine Color Dk yellow Urine Clarity Clear Urine pH 6.5 Urine Specific [place] >=1.030 Urine Protein 30 mg/dL (NEG-TRACE) Urine Glucose (UA) Negative mg/dL (NEG) Urine Ketones (Stick) >=80 mg/dL (NEG) Urine Blood Negative (NEG) Urine Nitrite Negative (NEG) Urine Bilirubin Small (NEG) Urine Urobilinogen Dipstick 2.0 mg/dL (0.2 mg/dL) Urine Leukocyte Esterase Negative (NEG) Urine RBC Occ /HPF (0-2) Urine WBC 0 /HPF (0-4) Urine Squamous Epithelial Cells Few /LPF Urine Bacteria 0 /HPF (0-FEW) Urine Opiates Screen Pos (NEG) Urine Methadone Screen Neg (NEG) Urine Barbiturates Neg (NEG) Urine Phencyclidine Screen Neg (NEG) Urine Amphetamine/Methamphetamine Neg (NEG) Urine Benzodiazepines Screen Neg (NEG) Urine Cocaine Screen Neg (NEG) Urine Cannabinoids Screen Neg (NEG) Urine Ethyl Alcohol Neg (NEG) Laboratory Tests Test 08/24/18 14:30 08/24/18 21:45 08/25/18 07:15 White Blood Count 6.5 x10^3/uL (4.0-11.0) Red Blood Count 4.09 x10^6/uL (4.30-5.70) Hemoglobin 12.9 g/dL (13.0-17.5) Hematocrit 37.1 % (39.0-53.0) Mean Corpuscular Volume 91 fL (79-100) Mean Corpuscular Hemoglobin 32 pg (25-35) Mean Corpuscular Hemoglobin Concent 35 g/dL (31-37) Red Cell Distribution Width 14.4 % (11.5-14.5) Platelet Count 89 x10^3/uL (140-400) Neutrophils (%) (Auto) 71 % (31-73) Lymphocytes (%) (Auto) 19 % (24-48) Monocytes (%) (Auto) 7 % (0-9) Eosinophils (%) (Auto) 1 % (0-3) Basophils (%) (Auto) 1 % (0-3) Neutrophils # (Auto) 4.6 x10^3uL (1.8-7.7) Lymphocytes # (Auto) 1.3 x10^3/uL (1.0-4.8) Monocytes # (Auto) 0.5 x10^3/uL (0.0-1.1) Eosinophils # (Auto) 0.1 x10^3/uL (0.0-0.7) Basophils # (Auto) 0.1 x10^3/uL (0.0-0.2) Platelet Estimate Decreased (ADEQUATE) Prothrombin Time 17.5 SEC (11.7-14.0) Prothromb Time International Ratio 1.5 (0.8-1.1) D-Dimer (Arcelia) 1.77 ug/mlFEU (0.00-0.50) Sodium Level 138 mmol/L (136-145) 138 mmol/L (136-145) Potassium Level 3.4 mmol/L (3.5-5.1) 3.3 mmol/L (3.5-5.1) Chloride Level 99 mmol/L (98-107) 100 mmol/L (98-107) Carbon Dioxide Level 23 mmol/L (21-32) 26 mmol/L (21-32) Anion Gap 16 (6-14) 12 (6-14) Blood Urea Nitrogen 9 mg/dL (8-26) 10 mg/dL (8-26) Creatinine 0.9 mg/dL (0.7-1.3) 0.7 mg/dL (0.7-1.3) Estimated GFR (Cockcroft-Gault) 86.7 115.8 BUN/Creatinine Ratio 10 (6-20) Glucose Level 83 mg/dL (70-99) 87 mg/dL (70-99) Calcium Level 8.6 mg/dL (8.5-10.1) 8.4 mg/dL (8.5-10.1) Magnesium Level 1.4 mg/dL (1.8-2.4) 1.9 mg/dL (1.8-2.4) Total Bilirubin 2.2 mg/dL (0.2-1.0) Aspartate Amino Transf (AST/SGOT) 165 U/L (15-37) Alanine Aminotransferase (ALT/SGPT) 86 U/L (16-63) Alkaline Phosphatase 139 U/L (46-116) Troponin I Quantitative 0.018 ng/mL (0.000-0.055) 0.034 ng/mL (0.000-0.055) PY-Pzk-R-Type Natriuretic Peptide 32 pg/mL (0-124) Total Protein 8.8 g/dL (6.4-8.2) Albumin 3.4 g/dL (3.4-5.0) Albumin/Globulin Ratio 0.6 (1.0-1.7) Triglycerides Level 126 mg/dL (0-150) Cholesterol Level 181 mg/dL (0-200) LDL Cholesterol, Calculated 88 mg/dL (0-100) VLDL Cholesterol, Calculated 25 mg/dL (0-40) Non-HDL Cholesterol Calculated 113 mg/dL (0-129) HDL Cholesterol 68 mg/dL (40-60) Cholesterol/HDL Ratio 2.7 Lipase 274 U/L (73-393) Thyroid Stimulating Hormone (TSH) 1.421 uIU/mL (0.358-3.74) Ethyl Alcohol Level < 10 mg/dL (0-10) Urine Collection Type Unknown Urine Color Dk yellow Urine Clarity Clear Urine pH 6.5 Urine Specific [place] >=1.030 Urine Protein 30 mg/dL (NEG-TRACE) Urine Glucose (UA) Negative mg/dL (NEG) Urine Ketones (Stick) >=80 mg/dL (NEG) Urine Blood Negative (NEG) Urine Nitrite Negative (NEG) Urine Bilirubin Small (NEG) Urine Urobilinogen Dipstick 2.0 mg/dL (0.2 mg/dL) Urine Leukocyte Esterase Negative (NEG) Urine RBC Occ /HPF (0-2) Urine WBC 0 /HPF (0-4) Urine Squamous Epithelial Cells Few /LPF Urine Bacteria 0 /HPF (0-FEW) Urine Opiates Screen Pos (NEG) Urine Methadone Screen Neg (NEG) Urine Barbiturates Neg (NEG) Urine Phencyclidine Screen Neg (NEG) Urine Amphetamine/Methamphetamine Neg (NEG) Urine Benzodiazepines Screen Neg (NEG) Urine Cocaine Screen Neg (NEG) Urine Cannabinoids Screen Neg (NEG) Urine Ethyl Alcohol Neg (NEG) Medications Current Medications Nitroglycerin (Nitrostat) 0.4 mg PRN Q5MIN PRN SL CP RATING > 1/10 Last administered on 08/24/18at 15:10; Start 08/24/18 at 14:45; Stop 08/25/18 at 14:44 Morphine Sulfate (Morphine Sulfate) 2 mg 1X ONCE IV Last administered on at 14:55; Start 08/24/18 at 14:45; Stop 08/24/18 at 14:46; Status DC Iohexol (Omnipaque 300 Mg/ml) 90 ml 1X ONCE IV Last administered on 08/24/18at 15:30; Start 08/24/18 at 15:30; Stop 08/24/18 at 15:33; Status DC Info (CONTRAST GIVEN -- Rx MONITORING) 1 each PRN DAILY PRN MC SEE COMMENTS; Start 08/24/18 at 15:45; Stop 08/26/18 at 15:44 Magnesium Sulfate 50 ml @ 25 mls/hr 1X ONCE IV Last administered on 08/24/18at 16:40; Start 08/24/18 at 16:15; Stop 08/24/18 at 18:14; Status DC Potassium Chloride (Klor-Con) 20 meq 1X ONCE PO Last administered on at 16:39; Start 08/24/18 at 16:15; Stop 08/24/18 at 16:16; Status DC Amlodipine Besylate (Norvasc) 10 mg DAILY PO Last administered on 08/25/18at 10: 04; Start 08/25/18 at 09:00 Lisinopril (Prinivil) 20 mg DAILY PO Last administered on 08/25/18at 10:04; Start 08/25/18 at 09:00 Metoprolol Tartrate (Lopressor) 100 mg BID PO Last administered on 08/25/18at 10 :05; Start 08/25/18 at 09:00 Hydrochlorothiazide (Microzide) 12.5 mg DAILY PO Last administered on at 10:03; Start 08/25/18 at 09:00; Stop 08/25/18 at 10:56; Status DC Potassium Chloride (Klor-Con) 40 meq 1X ONCE PO Last administered on at 10:03; Start 08/25/18 at 08:45; Stop 08/25/18 at 08:49; Status DC Furosemide (Lasix) 40 mg DAILY PO ; Start 08/25/18 at 11:30 Potassium Chloride (Klor-Con) 10 meq DAILYWBKFT PO ; Start 08/25/18 at 11:30 Pantoprazole Sodium (Protonix) 40 mg DAILYAC PO ; Start 08/25/18 at 11:30 Active Scripts Active Reported Lisinopril-Hctz 20-12.5 Mg Tab (Lisinopril/Hydrochlorothiazide) 1 Each Tablet 1 Tab PO DAILY Amlodipine Besylate 10 Mg Tablet 10 Mg PO DAILY Metoprolol Tartrate 100 Mg Tablet 1 Tab PO BID Vitals/I & O Vital Sign - Last 24 Hours 08/24/18 08/24/18 08/24/18 08/24/18 14:44 14:55 14:55 15:01 Temp 98.2 98.2 Pulse 102 103 102 Resp 20 20 B/P (MAP) 176/78 (110) 146/62 128/58 Pulse Ox 97 98 O2 Delivery Room Air 08/24/18 08/24/18 08/24/18 08/24/18 15:10 16:43 18:15 19:21 Temp 98.0 98.1 98.0 98.1 Pulse 104 98 98 94 Resp 18 18 18 B/P (MAP) 111/56 140/76 (97) 162/68 (99) 166/68 (100) Pulse Ox 96 97 96 O2 Delivery Room Air Room Air Room Air 08/24/18 08/24/18 08/25/18 08/25/18 20:00 23:35 03:45 07:00 Temp 98.2 98.1 98.5 98.2 98.1 98.5 Pulse 93 89 91 Resp 20 21 20 B/P (MAP) 152/72 (98) 157/84 (108) 170/83 (112) Pulse Ox 97 98 97 O2 Delivery Room Air Room Air Room Air Room Air 08/25/18 08/25/18 08/25/18 10:04 10:04 10:05 Pulse 91 91 91 B/P (MAP) 170/83 170/83 170/83 Intake and Output 08/24/18 08/24/18 08/25/18 15:00 23:00 07:00 Intake Total 50 ml 250 ml Output Total 150 ml Balance 50 ml 100 ml KUNALNIAL K III DO Aug 25, 2018 11:19
[2018-08-25] MEDS: POTASSIUM CHLORIDE 10 MEQ TABLET.ER. PO SCH (11:49)
[2018-08-25] MEDS: FUROSEMIDE 40 MG TABLET. PO SCH (11:49)
[2018-08-25] MEDS: PANTOPRAZOLE 40 MG TABLET.DR. PO SCH (11:49)
--- NOTE | 2018-08-25 12:26 | PDOC2 ---
GI CONSULT Reason For Consult: Gallstones HPI: HPI: 57 y/o male admitted through ER w/ chest pain. Describes central chest pressure radiating through to back and down to left hand that began while he was binge drinking a bottle of tequila (each) with his uncle. This time, imaging noted cholelithiasis, hepatic steatosis, and mild splenomegaly. Labs notable for Hgb 12.9, MCV 91, plt 89, INR 1.5, bili 2.2, AST 165, ALT 86, Alk Phos 139. Thrombocytopenia present since 2013, elevated LFTs on and off for a few years. Recalls being told of abnormal liver labs last year (when admitted for chest pain) and he stopped drinking x 1 year (but recently resumed when his uncle came to visit). GI asked to see for gallstones. Occasional heartburn after eating too many chiles - takes Alk-[place]ne sometimes but not very helpful. No dysphagia. No n/v. Vague RUQ pain for awhile - no aggravating or alleviating factors. No diarrhea. Occasional constipation and intermittent blood in stools (says red and "not too black") - attributes to hemorrhoids. Appetite stable until about 3 days ago (when I think he started drinking again). Has gained weight. Unaware of pancreas, gallbladder, or PUD history. Daily ASA use (81mg), no NSAIDs. Uses a cream sometimes for psoriasis. Stool H. pylori Ag, Hep B, and Hep C negative this year. PMH: PMH: HTN, GERD, alcohol abuse, hemorrhoids, OA, psoriasis FH: Family History: Cancer (mother - unknown type) Social History: Smoke: Quit ALCOHOL: heavy Drugs: Crystal meth (once accidentally in 2017) ROS: GEN: Denies fevers, chills, sweats HEENT: Denies blurred vision, sore throat CV: +CP RESP: Denies shortness of air, cough GI: Per HPI : Denies hematuria, dysuria ENDO: +weight gain NEURO: Denies confusion, dizziness MSK: Denies weakness, joint pain/swelling SKIN: +psoriasis Vitals: Vitals: Vital Signs Date Time Temp Pulse Resp B/P (MAP) Pulse Ox O2 Delivery O2 Flow Rate FiO2 08/25/18 10:05 91 170/83 08/25/18 07:30 Room Air 08/25/18 07:00 98.5 20 97 98.5 Labs: Labs: Laboratory Tests Test 08/24/18 14:30 08/24/18 21:45 08/25/18 07:15 White Blood Count 6.5 x10^3/uL (4.0-11.0) Red Blood Count 4.09 x10^6/uL (4.30-5.70) Hemoglobin 12.9 g/dL (13.0-17.5) Hematocrit 37.1 % (39.0-53.0) Mean Corpuscular Volume 91 fL (79-100) Mean Corpuscular Hemoglobin 32 pg (25-35) Mean Corpuscular Hemoglobin Concent 35 g/dL (31-37) Red Cell Distribution Width 14.4 % (11.5-14.5) Platelet Count 89 x10^3/uL (140-400) Neutrophils (%) (Auto) 71 % (31-73) Lymphocytes (%) (Auto) 19 % (24-48) Monocytes (%) (Auto) 7 % (0-9) Eosinophils (%) (Auto) 1 % (0-3) Basophils (%) (Auto) 1 % (0-3) Neutrophils # (Auto) 4.6 x10^3uL (1.8-7.7) Lymphocytes # (Auto) 1.3 x10^3/uL (1.0-4.8) Monocytes # (Auto) 0.5 x10^3/uL (0.0-1.1) Eosinophils # (Auto) 0.1 x10^3/uL (0.0-0.7) Basophils # (Auto) 0.1 x10^3/uL (0.0-0.2) Platelet Estimate Decreased (ADEQUATE) Prothrombin Time 17.5 SEC (11.7-14.0) Prothromb Time International Ratio 1.5 (0.8-1.1) D-Dimer (Arcelia) 1.77 ug/mlFEU (0.00-0.50) Sodium Level 138 mmol/L (136-145) 138 mmol/L (136-145) Potassium Level 3.4 mmol/L (3.5-5.1) 3.3 mmol/L (3.5-5.1) Chloride Level 99 mmol/L (98-107) 100 mmol/L (98-107) Carbon Dioxide Level 23 mmol/L (21-32) 26 mmol/L (21-32) Anion Gap 16 (6-14) 12 (6-14) Blood Urea Nitrogen 9 mg/dL (8-26) 10 mg/dL (8-26) Creatinine 0.9 mg/dL (0.7-1.3) 0.7 mg/dL (0.7-1.3) Estimated GFR (Cockcroft-Gault) 86.7 115.8 BUN/Creatinine Ratio 10 (6-20) Glucose Level 83 mg/dL (70-99) 87 mg/dL (70-99) Calcium Level 8.6 mg/dL (8.5-10.1) 8.4 mg/dL (8.5-10.1) Magnesium Level 1.4 mg/dL (1.8-2.4) 1.9 mg/dL (1.8-2.4) Total Bilirubin 2.2 mg/dL (0.2-1.0) Aspartate Amino Transf (AST/SGOT) 165 U/L (15-37) Alanine Aminotransferase (ALT/SGPT) 86 U/L (16-63) Alkaline Phosphatase 139 U/L (46-116) Troponin I Quantitative 0.018 ng/mL (0.000-0.055) 0.034 ng/mL (0.000-0.055) OI-Pbu-D-Type Natriuretic Peptide 32 pg/mL (0-124) Total Protein 8.8 g/dL (6.4-8.2) Albumin 3.4 g/dL (3.4-5.0) Albumin/Globulin Ratio 0.6 (1.0-1.7) Triglycerides Level 126 mg/dL (0-150) Cholesterol Level 181 mg/dL (0-200) LDL Cholesterol, Calculated 88 mg/dL (0-100) VLDL Cholesterol, Calculated 25 mg/dL (0-40) Non-HDL Cholesterol Calculated 113 mg/dL (0-129) HDL Cholesterol 68 mg/dL (40-60) Cholesterol/HDL Ratio 2.7 Lipase 274 U/L (73-393) Thyroid Stimulating Hormone (TSH) 1.421 uIU/mL (0.358-3.74) Ethyl Alcohol Level < 10 mg/dL (0-10) Urine Collection Type Unknown Urine Color Dk yellow Urine Clarity Clear Urine pH 6.5 Urine Specific [place] >=1.030 Urine Protein 30 mg/dL (NEG-TRACE) Urine Glucose (UA) Negative mg/dL (NEG) Urine Ketones (Stick) >=80 mg/dL (NEG) Urine Blood Negative (NEG) Urine Nitrite Negative (NEG) Urine Bilirubin Small (NEG) Urine Urobilinogen Dipstick 2.0 mg/dL (0.2 mg/dL) Urine Leukocyte Esterase Negative (NEG) Urine RBC Occ /HPF (0-2) Urine WBC 0 /HPF (0-4) Urine Squamous Epithelial Cells Few /LPF Urine Bacteria 0 /HPF (0-FEW) Urine Opiates Screen Pos (NEG) Urine Methadone Screen Neg (NEG) Urine Barbiturates Neg (NEG) Urine Phencyclidine Screen Neg (NEG) Urine Amphetamine/Methamphetamine Neg (NEG) Urine Benzodiazepines Screen Neg (NEG) Urine Cocaine Screen Neg (NEG) Urine Cannabinoids Screen Neg (NEG) Urine Ethyl Alcohol Neg (NEG) Allergies: Coded Allergies: No Known Drug Allergies (Unverified , 08/28/17) Medications: Current Medications Medications (Trade) Dose Ordered Sig/Zane Route PRN Reason Start Time Stop Time Status Last Admin Dose Admin Nitroglycerin (Nitrostat) 0.4 mg PRN Q5MIN PRN SL CP RATING > 1/10 08/24/18 14:45 08/25/18 14:44 08/24/18 15:10 Morphine Sulfate (Morphine Sulfate) 2 mg 1X ONCE IV 08/24/18 14:45 08/24/18 14:46 DC 08/24/18 14:55 Iohexol (Omnipaque 300 Mg/ml) 90 ml 1X ONCE IV 08/24/18 15:30 08/24/18 15:33 DC 08/24/18 15:30 Magnesium Sulfate 50 ml @ 25 mls/hr 1X ONCE IV 08/24/18 16:15 08/24/18 18:14 DC 08/24/18 16:40 Potassium Chloride (Klor-Con) 20 meq 1X ONCE PO 08/24/18 16:15 08/24/18 16:16 DC 08/24/18 16:39 Amlodipine Besylate (Norvasc) 10 mg DAILY PO 08/25/18 09:00 08/25/18 10:04 Lisinopril (Prinivil) 20 mg DAILY PO 08/25/18 09:00 08/25/18 10:04 Metoprolol Tartrate (Lopressor) 100 mg BID PO 08/25/18 09:00 08/25/18 10:05 Hydrochlorothiazide (Microzide) 12.5 mg DAILY PO 08/25/18 09:00 08/25/18 10:56 DC 08/25/18 10:03 Potassium Chloride (Klor-Con) 40 meq 1X ONCE PO 08/25/18 08:45 08/25/18 08:49 DC 08/25/18 10:03 Furosemide (Lasix) 40 mg DAILY PO 08/25/18 11:30 08/25/18 11:49 Potassium Chloride (Klor-Con) 10 meq DAILYWBKFT PO 08/25/18 11:30 08/25/18 11:49 Pantoprazole Sodium (Protonix) 40 mg DAILYAC PO 08/25/18 11:30 08/25/18 11:49 Imaging: Imaging: CXR 08/24 Impression: No acute radiographic abnormality is seen. Abd US IMPRESSION: Limited exam demonstrating cholelithiasis. C/A/P CTA IMPRESSION: 1. Suboptimal PE study due to contrast bolus timing and breathing motion artifact. No central or proximal segmental PE. Evaluation of distal segmental and subsegmental pulmonary arteries is limited. No imaging evidence of pulmonary infarct or pneumonia. Further evaluation with nuclear medicine VQ scan may be of additional benefit. 2. Suboptimal aortic angiographic study. However no aortic aneurysm or apparent dissection flap seen. The major abdominal aortic branches are patent. 3. Hepatic steatosis. 4. Mild splenomegaly with evidence of pulmonary artery hypertension. 5. Mildly enlarged bilateral external iliac chain lymph nodes, nonspecific most likely reactive. 6. Cholelithiasis without imaging evidence of acute cholecystitis. Echocardiogram 08/25 <Conclusion> The left ventricular systolic function is normal. The Ejection Fraction is 60-65%. There is normal LV segmental wall motion. Trace mitral regurgitation. Trace tricuspid regurgitation. There is moderate pulmonary hypertension. The PA pressure was estimated at 48 mmHg. There is no evidence of significant pericardial effusion. PE: GEN: NAD HEENT: Atraumatic, PERRL LUNGS: CTAB HEART: RRR ABD: obese, NABS, soft, non-tender EXTREMITY: No edema SKIN: plaque left knee flexural surface NEURO/PSYCH: A & O 3 A/P: A/P: Chest pain, HTN Alcohol abuse - recently resume after 1 year sobriety Thrombocytopenia, coagulopathy, elevated LFTs Hepatic steatosis - liver not well visualized on US due to body habitus Cholelithiasis Occasional heartburn Occasional constipation Intermittent hematochezia - attributed to hemorrhoid CRC screen - none -- Will review w/ Dr. Hall re: gallstones/need for surgical eval or need for HIDA - ?incidental finding, would be high risk w/ obesity, alcoholic liver disease (MELD 14), etc. Okay for clear liquids, ADAT. Agree w/ PPI. Add Miralax. Check anemia parameters. Abstain from alcohol. Outpt EGD and colonoscopy. RICHARD HERNANDEZ Aug 25, 2018 12:26
[2018-08-25] MEDS: POLYETHYLENE GLYCOL 3350 17 GM PACKET. PO SCH (13:24)
[2018-08-25 15:00] VITALS: BP 112/63
[2018-08-25 19:00] VITALS: BP 110/66
[2018-08-25 23:00] VITALS: BP 126/70
[2018-08-26 03:07] VITALS: BP 136/71
[2018-08-26 07:00] VITALS: BP 134/87
[2018-08-26] MEDS: POTASSIUM CHLORIDE 10 MEQ TABLET.ER. PO SCH (08:24)
[2018-08-26] MEDS: LISINOPRIL 20 MG TABLET PO SCH (08:25)
[2018-08-26] MEDS: METOPROLOL TART IMMED RELEASE 50 MG TABLET. PO SCH (08:25)
[2018-08-26] MEDS: PANTOPRAZOLE 40 MG TABLET.DR. PO SCH (08:26)
[2018-08-26] MEDS: POLYETHYLENE GLYCOL 3350 17 GM PACKET. PO SCH (08:26)
[2018-08-26] MEDS: FUROSEMIDE 40 MG TABLET. PO SCH (08:26)
--- NOTE | 2018-08-26 09:39 | PDOC ---
Subjective: Subjective: No complaints - would like to go home. Tolerating PO, denies abd pain. Still not sure he would ever want a colonoscopy or EGD. Objective: Vital Signs: Vital Signs Date Time Temp Pulse Resp B/P (MAP) Pulse Ox O2 Delivery O2 Flow Rate FiO2 08/26/18 08:25 69 134/87 08/26/18 07:45 Room Air 08/26/18 07:00 97.9 20 94 97.9 PE: GEN: NAD LUNGS: CTAB HEART: RRR ABD: obese, soft, non-tender NEURO/PSYCH: A & O 3 A/P: Alcoholic liver disease Cholelithiasis - asymptomatic -- DC per primary, d/w Dr. Quan. No alcohol. Again recommended outpt scopes, he'll consider. RICHARD HERNANDEZ Aug 26, 2018 09:39
[2018-08-26 11:00] VITALS: BP 111/54
[2018-08-26 12:30] VITALS: BP 111/54
[2018-08-26] MEDS: amLODIPine BESYLATE 10 MG TABLET PO SCH (12:30)
[2018-08-26 12:47] LABS: BASO # 0.1 x10^3/uL (0.0-0.2); BASO % 1 % (0-3); EOS # 0.5 x10^3/uL (0.0-0.7); EOS % 7 % (0-3); HEMATOCRIT 40.7 % (39.0-53.0); LYMPH # 1.9 x10^3/uL (1.0-4.8); LYMPH % 30 % (24-48); MEAN CORPUSCULAR HEMOGLOBIN 32 pg (25-35); MEAN CORPUSCULAR HGB CONC 34 g/dL (31-37); MEAN CORPUSCULAR VOLUME 94 fL (79-100); MONO # 0.5 x10^3/uL (0.0-1.1); MONO % 8 % (0-9); NEUT # 3.4 x10^3uL (1.8-7.7); NEUT % 53 % (31-73); PLATELET COUNT 89 x10^3/uL (140-400); RED BLOOD COUNT 4.35 x10^6/uL (4.30-5.70); RED CELL DISTRIBUTION WIDTH 14.7 % (11.5-14.5); WHITE BLOOD COUNT 6.4 x10^3/uL (4.0-11.0)
[2018-08-26 13:09] LABS: ALBUMIN 3.2 g/dL (3.4-5.0); ALBUMIN/GLOBULIN RATIO 0.6 (1.0-1.7); CALCIUM 8.9 mg/dL (8.5-10.1); GFR 76.7; POTASSIUM 3.5 mmol/L (3.5-5.1); TOTAL BILIRUBIN 1.7 mg/dL (0.2-1.0); TOTAL PROTEIN 8.7 g/dL (6.4-8.2)
[2018-08-26] MEDS ORDERED: Pantoprazole PO (13:22)
--- NOTE | 2018-08-26 13:26 | PDOC3 ---
Discharge Summary [facility] Date of Admission: Aug 24, 2018 Discharge Date: Aug 26, 2018 Admitting Diagnosis chest pain, 2/2 geRD likely cholelithiasis elevated transaminitis 2/2 Alcohol morbid obesity HTN Final Diagnosis CONSULTS gi card Brief Hospital Course Mr. Villagomez is a 57 old M, HTN, comes for chest pain. The chest pain radiats to back. Echo was ok. the chest pain is likely 2/2 GERD. pt was found cholelithiasis but denies abd pain. High LFT, said not drinking for 1 y, but restarted on 08/14, and then last Wednesday. now pt has no chest pain. discussed with GI, ok to dc, cont protonix. fu with GI as outpt. dc time 35min. General: Alert, Oriented X3, Cooperative, No acute distress Heart: Regular rate (SR/ST), Normal S1, Normal S2, Other (distnat heart sounds) Lungs: Clear, Other (no crackles or wheezes) Abdomen: Normal bowel sounds, Other (TTP) Extremities: No cyanosis, Other (trace bilateral LE pitting edema) Skin: No breakdown, No significant lesion Patient History: Unknown Disposition home CONDITION AT DISCHARGE: Improved Scheduled Amlodipine Besylate (Amlodipine Besylate), 10 MG PO DAILY, (Reported) Lisinopril/Hydrochlorothiazide (Lisinopril-Hctz 20-12.5 Mg Tab), 1 TAB PO DAILY, (Reported) Metoprolol Tartrate (Metoprolol Tartrate), 1 TAB PO BID, (Reported) [Pantoprazole], 40 MG PO DAILYAC HOWARD STARKEY MD Aug 26, 2018 13:26
== END 2018-08-26 14:25 | disposition home or self-care (01) | DRG 392 ==
LOC: ER 14:15 → ED HOLD 17:15 → 2 NORTH 19:09 → 5 SOUTH 08-25 13:01
PROVIDERS: ADMIT Internal Medicine; ATTEND Internal Medicine
DX: K21.9 Gastro-esophageal reflux disease without esophagitis (principal); D68.9 Coagulation defect, unspecified; Z68.42 Body mass index [BMI] 45.0-49.9, adult; I50.30 Unspecified diastolic (congestive) heart failure; D69.6 Thrombocytopenia, unspecified; I11.0 Hypertensive heart disease with heart failure; I27.21 Secondary pulmonary arterial hypertension; E83.42 Hypomagnesemia; E66.01 Morbid (severe) obesity due to excess calories; K76.0 Fatty (change of) liver, not elsewhere classified; K70.9 Alcoholic liver disease, unspecified; K80.20 Calculus of gallbladder without cholecystitis without obstruction; M19.90 Unspecified osteoarthritis, unspecified site; F10.20 Alcohol dependence, uncomplicated; E87.6 Hypokalemia; I78.1 Nevus, non-neoplastic; L40.9 Psoriasis, unspecified; K59.00 Constipation, unspecified; Z79.899 Other long term (current) drug therapy; Z80.9 Family history of malignant neoplasm, unspecified
CPT/HCPCS: 36415; 71045; 71275; 74174; 76705; 80048; 80053; 80061; 80307; 81001; 82607; 83540; 83550; 83690; 83735; 83880; 84443; 84484; 85025; 85045; 85379; 85610; 93005; 93306; 96374; G0480; J2270; J3475; Q9967; 99285-25

== ENCOUNTER → 2020-07-19 | Outpatient (CLI) | payer OTHER ==
[~2020-07-19] MED LIST changes: +AMLO-187 PO; -AMLO10TA6 PO; +LISI1TAB37 PO; +Pantoprazole PO
--- NOTE | 2020-07-19 12:38 | RAD ---
KNEE LEFT 3V DATE: 07/19/2020 12:00 AM INDICATION: LEFT KNEE PAIN. COMPARISON: None. FINDINGS: Bones: There is no evidence of acute fracture or dislocation. Joints: Moderate degenerative changes of the medial compartment. Mild degenerative changes of the lateral and patellofemoral compartments. There is no joint effusion. Miscellaneous: None. IMPRESSION: No acute osseous abnormality. Tricompartmental departmental degenerative changes, worst and moderate in the medial compartment. Electronically signed by: Cayetano Gaston MD (07/19/2020 12:35 PM) [id number]
== END ==
LOC: RAD 09:31
PROVIDERS: ATTEND Family Medicine
DX: M17.12 Unilateral primary osteoarthritis, left knee (principal)
CPT/HCPCS: 73562